=== PATIENT | female | born 1950 | race African-American/Black ===

== ENCOUNTER 2021-03-03 17:29 | Inpatient (IN) | payer OTHER, MEDICAID ==
[~2021-03-03] VITALS: Ht 157.5 cm; Wt 49.1 kg
[2021-03-03] MEDS ORDERED: ONDANSETRON HCL 4MG/2ML INJ IV STA (18:53)
[2021-03-03] MEDS ORDERED: SODIUM CHLORIDE 0.9% 250 ML IV ONE (19:00)
[2021-03-03 19:25] LABS: HEMATOCRIT. 45.8 % (36.0-48.0); HEMOGLOBIN. 15.3 g/dL (12.0-16.0); MEAN CORPUSCULAR HEMOGLOBIN 29.4 pg (28.0-32.0); MEAN PLATELET VOLUME 8.6 fl (7.4-10.4); PLATELET 131 x1000/uL (130-400); RED BLOOD CELL COUNT 5.21 mill/uL (4.2-5.4); RED CELL DISTRIBUTION WIDTH 13.8 % (11.6-14.6)
[2021-03-03 19:57] LABS: PLATELET ESTIMATE NORMAL
[2021-03-03 21:45] LABS: CHLORIDE 113 mEq/L (98-107)
[2021-03-03 21:54] LABS: CREATINE KINASE 163 IU/L (26-192)
[2021-03-03 21:57] LABS: CREATINE KINASE MB FRACTION 7.4 ng/mL (0.5-3.6)
[2021-03-03 22:07] LABS: CLARITY URINE CLOUDY (CLEAR); COLOR URINE YELLOW (YELLOW); KETONES URINE TRACE (NEGATIVE); LEUKOCYTE ESTERASE URINE NEGATIVE (NEGATIVE); NITRITE URINE NEGATIVE (NEGATIVE); OCCULT BLOOD URINE NEGATIVE (NEGATIVE); PROTEIN URINE TRACE (NEGATIVE); SPECIFIC GRAVITY URINE 1.013 (1.005-1.030); UROBILINOGEN URINE 0.2 E.U./dL (0.2-1.0)
[2021-03-03] MEDS ORDERED: ASPIRIN 325MG EC TABLET PO NR (23:15)
[2021-03-03] MEDS ORDERED: POTASSIUM CHLORIDE 20MEQ TABLET SR PO NR (23:30)
[2021-03-04] MEDS: KCL 20MEQ/100ML PREMIX 100 ML IV SCH ×3 (01:34→04:38)
[2021-03-04] MEDS ORDERED: CALCIUM GLUCONATE 1,000 MG in DEXT 5% WATER 90 ML IV NR (09:45)
[2021-03-04] MEDS ORDERED: CALCIUM GLUCONATE 1GM PREMIX 50 ML IV NR (10:15)
[2021-03-04] MEDS: SODIUM CHLORIDE 0.45% 1,000 ML IV SCH ×2 (11:49→23:48)
[2021-03-04] MEDS: POTASSIUM CHLORIDE 20MEQ TABLET SR PO NR ×2 (11:50→12:12)
[2021-03-04] MEDS: ENOXAPARIN 40MG/0.4ML SYR SUBCUT SCH (13:17)
[2021-03-04] MEDS ORDERED: MAGNESIUM 2 G PREMIX 50 ML IV NR (22:00)
[2021-03-05] MEDS ORDERED: NALOXONE HCL 0.4MG/ML VIAL IV PRN (04:30)
[2021-03-05] MEDS ORDERED: MORPHINE SULFATE 2 MG/ML CPJ (NOT FOR IM USE) IV PRN (04:30)
[2021-03-05 07:15] LABS: HEMATOCRIT. 35.9 % (36.0-48.0); HEMOGLOBIN. 12.5 g/dL (12.0-16.0); MEAN CORPUSCULAR HEMOGLOBIN 30.1 pg (28.0-32.0); MEAN CORPUSCULAR VOLUME 86.7 fL (81.0-99.0); MEAN PLATELET VOLUME 8.7 fl (7.4-10.4); PLATELET 116 x1000/uL (130-400); RED BLOOD CELL COUNT 4.14 mill/uL (4.2-5.4)
[2021-03-05 07:18] LABS: CHLORIDE 93 mEq/L (98-107)
[2021-03-05 08:30] VITALS: BP 124/59
[2021-03-05 09:00] VITALS: BP 128/64
[2021-03-05] MEDS ORDERED: POTASSIUM CHLORIDE 20MEQ TABLET SR PO NR (09:45)
[2021-03-05] MEDS ORDERED: ONDANSETRON HCL 4MG/2ML INJ IV PRN (10:45)
[2021-03-05] MEDS: ENOXAPARIN 40MG/0.4ML SYR SUBCUT SCH (11:00)
[2021-03-05 12:00] VITALS: BP 122/68
[2021-03-05 13:57] LABS: PLATELET ESTIMATE DECREASED
[2021-03-05 16:00] VITALS: BP 124/70
[2021-03-05] MEDS ORDERED: ALBUTEROL 6.7GM HFA INHALER ORI PRN (17:30)
[2021-03-05] MEDS ORDERED: ATEN-42 PO (18:34)
[2021-03-05] MEDS ORDERED: ASPI-1406 PO (18:34)
[2021-03-05] MEDS ORDERED: ATOR20TA65 PO (18:34)
[2021-03-05] MEDS ORDERED: CHLO25TA2 PO (18:34)
[2021-03-05 20:00] VITALS: BP 99/58
[2021-03-05] MEDS: GUAIFENESIN 600MG ER TABLET PO SCH (21:02)
[2021-03-05] MEDS: ATORVASTATIN CALCIUM 20MG TABLET PO SCH (21:02)
[2021-03-06] VITALS: BP 98/40
[2021-03-06] MEDS: SODIUM CHLORIDE 0.45% 1,000 ML IV SCH ×2 (01:35→18:39)
[2021-03-06 04:00] VITALS: BP 90/55
[2021-03-06 08:00] VITALS: BP 114/60
[2021-03-06] MEDS: ASPIRIN 81MG TABLET PO SCH (08:58)
[2021-03-06] MEDS: GUAIFENESIN 600MG ER TABLET PO SCH ×2 (08:58→22:23)
[2021-03-06] MEDS: ENOXAPARIN 40MG/0.4ML SYR SUBCUT SCH (10:05)
[2021-03-06] MEDS ORDERED: POTASSIUM CHLORIDE 20MEQ TABLET SR PO NR (11:30)
[2021-03-06 12:30] LABS: BG BASE EXCESS 4.2 mmol/L (-2.0-2.0); BG CARBOXYHEMOGLOBIN 0.2 % (0.5-1.5); BG HCO3 ACT 29.1 mmol/L (22.0-26.0); BG OXYHEMOGLOBIN 90.8 % (94.0-97.0); BG PCO2 44.4 mmHg (35.0-45.0); BG PH 7.434 (7.350-7.450); BG PO2 58.7 mmHg (75.0-100.0); BG SAMPLE SITE RIGHT BRACHIAL; BG TOTAL HEMOGLOBIN 14.3 g/dL (12.0-18.0); BG VENT MODE ROOM AIR
[2021-03-06 12:33] VITALS: BP 124/58
[2021-03-06 16:00] VITALS: BP 127/47
[2021-03-06 20:00] VITALS: BP 128/60
[2021-03-06] MEDS: ATORVASTATIN CALCIUM 20MG TABLET PO SCH (22:23)
[2021-03-06] MEDS: ACETAMINOPHEN 325MG TABLET PO PRN (22:24)
[2021-03-07] VITALS: BP 110/53
[2021-03-07 04:00] VITALS: BP 100/51
[2021-03-07] MEDS: SODIUM CHLORIDE 0.45% 1,000 ML IV SCH ×2 (05:16→17:28)
[2021-03-07 08:00] VITALS: BP 126/84
[2021-03-07] MEDS: GUAIFENESIN 600MG ER TABLET PO SCH ×2 (09:58→22:03)
[2021-03-07] MEDS: ASPIRIN 81MG TABLET PO SCH (09:58)
[2021-03-07] MEDS: ENOXAPARIN 40MG/0.4ML SYR SUBCUT SCH (10:00)
[2021-03-07 12:00] VITALS: BP 128/61
[2021-03-07 16:00] VITALS: BP 132/65
[2021-03-07 20:00] VITALS: BP 138/60
[2021-03-07] MEDS ORDERED: ZOLPIDEM TARTRATE 5MG TABLET PO PRN (20:00)
[2021-03-07] MEDS: ATORVASTATIN CALCIUM 20MG TABLET PO SCH (22:03)
[2021-03-08] VITALS: BP 128/76
[2021-03-08 04:00] VITALS: BP 117/61
[2021-03-08 06:08] LABS: HEMATOCRIT. 31.8 % (36.0-48.0); MEAN CORPUSCULAR HEMOGLOBIN 30.2 pg (28.0-32.0); MEAN CORPUSCULAR VOLUME 86.9 fL (81.0-99.0); MEAN PLATELET VOLUME 8.1 fl (7.4-10.4); PLATELET 244 x1000/uL (130-400); RED BLOOD CELL COUNT 3.65 mill/uL (4.2-5.4); RED CELL DISTRIBUTION WIDTH 13.8 % (11.6-14.6)
[2021-03-08 06:13] LABS: CHLORIDE 99 mEq/L (98-107)
[2021-03-08 08:00] VITALS: BP 96/59
[2021-03-08] MEDS: GUAIFENESIN 600MG ER TABLET PO SCH ×2 (08:59→21:10)
[2021-03-08] MEDS: ASPIRIN 81MG TABLET PO SCH (08:59)
[2021-03-08] MEDS: SODIUM CHLORIDE 0.45% 1,000 ML IV SCH ×2 (09:00→20:25)
[2021-03-08] MEDS: ENOXAPARIN 30MG/0.3ML SYR SUBCUT SCH (09:03)
[2021-03-08 12:00] VITALS: BP 150/75
[2021-03-08 16:00] VITALS: BP 120/79
[2021-03-08 17:27] LABS: PLATELET ESTIMATE NORMAL
[2021-03-08 20:00] VITALS: BP 126/59
[2021-03-08] MEDS: ATORVASTATIN CALCIUM 20MG TABLET PO SCH (21:10)
[2021-03-08] MEDS: DEXAMETHASONE 4MG TABLET PO SCH (22:28)
[2021-03-08] MEDS ORDERED: MAGNESIUM 4 G PREMIX 100 ML IV NR (22:30)
[2021-03-09] VITALS: BP 118/63
[2021-03-09 04:00] VITALS: BP 133/70
[2021-03-09 08:00] VITALS: BP 127/64
[2021-03-09] MEDS: GUAIFENESIN 600MG ER TABLET PO SCH ×2 (09:32→20:00)
[2021-03-09] MEDS: ENOXAPARIN 30MG/0.3ML SYR SUBCUT SCH (09:32)
[2021-03-09] MEDS: DEXAMETHASONE 4MG TABLET PO SCH (09:32)
[2021-03-09] MEDS: ASPIRIN 81MG TABLET PO SCH (09:32)
[2021-03-09] MEDS: SODIUM CHLORIDE 0.45% 1,000 ML IV SCH ×2 (09:33→20:01)
[2021-03-09 12:00] VITALS: BP 118/74
[2021-03-09 16:00] VITALS: BP 129/57
[2021-03-09] MEDS: HYDROCODONE/ACETAMINOPHEN 10/325MG TABLET PO PRN (19:48)
[2021-03-09] MEDS: ATORVASTATIN CALCIUM 20MG TABLET PO SCH (20:00)
[2021-03-10 00:05] VITALS: BP 118/57
[2021-03-10 04:00] VITALS: BP 113/59
[2021-03-10] MEDS: ASPIRIN 81MG TABLET PO SCH (08:52)
[2021-03-10] MEDS: SODIUM CHLORIDE 0.45% 1,000 ML IV SCH ×2 (08:52→21:03)
[2021-03-10] MEDS: ENOXAPARIN 30MG/0.3ML SYR SUBCUT SCH (08:52)
[2021-03-10] MEDS: GUAIFENESIN 600MG ER TABLET PO SCH ×2 (08:53→20:56)
[2021-03-10] MEDS: HYDROCODONE/ACETAMINOPHEN 10/325MG TABLET PO PRN ×2 (08:54→18:50)
[2021-03-10] MEDS: DEXAMETHASONE 4MG TABLET PO SCH (08:54)
[2021-03-10 12:00] VITALS: BP 112/46
[2021-03-10 16:00] VITALS: BP 106/28
[2021-03-10 20:00] VITALS: BP 123/87
[2021-03-10] MEDS: ATORVASTATIN CALCIUM 20MG TABLET PO SCH (20:56)
[2021-03-10] MEDS: GUAIFENESIN/CODEINE 200-20MG/10ML UDC PO PRN (21:02)
[2021-03-11] VITALS: BP 118/62
[2021-03-11 00:08] LABS: BASOPHILS % 0.4 % (0.0-2.0); HEMATOCRIT. 29.5 % (36.0-48.0); HEMOGLOBIN. 9.8 g/dL (12.0-16.0); LYMPHOCYTES % 11.4 % (20.0-50.0); MEAN CORPUSCULAR HEMOGLOBIN 29.3 pg (28.0-32.0); MEAN CORPUSCULAR VOLUME 87.9 fL (81.0-99.0); MEAN PLATELET VOLUME 6.9 fl (7.4-10.4); NEUTROPHILS % 76.2 % (40.0-76.0); PLATELET 375 x1000/uL (130-400); RED BLOOD CELL COUNT 3.35 mill/uL (4.2-5.4)
[2021-03-11 00:17] LABS: CHLORIDE 101 mEq/L (98-107)
[2021-03-11 04:00] VITALS: BP 120/84
[2021-03-11 08:00] VITALS: BP 136/52
[2021-03-11] MEDS: ASPIRIN 81MG TABLET PO SCH (08:28)
[2021-03-11] MEDS: ENOXAPARIN 30MG/0.3ML SYR SUBCUT SCH (08:28)
[2021-03-11] MEDS: GUAIFENESIN 600MG ER TABLET PO SCH ×2 (08:28→21:03)
[2021-03-11] MEDS: DEXAMETHASONE 4MG TABLET PO SCH (08:28)
[2021-03-11] MEDS: GUAIFENESIN/CODEINE 200-20MG/10ML UDC PO PRN ×2 (10:29→21:03)
[2021-03-11] MEDS: ACETAMINOPHEN 325MG TABLET PO PRN ×2 (10:33→21:08)
[2021-03-11 12:00] VITALS: BP 136/61
[2021-03-11] MEDS: SODIUM CHLORIDE 0.45% 1,000 ML IV SCH (14:06)
[2021-03-11 16:00] VITALS: BP 107/48
[2021-03-11 20:00] VITALS: BP 132/62
[2021-03-11] MEDS: ATORVASTATIN CALCIUM 20MG TABLET PO SCH (21:03)
[2021-03-11] MEDS ORDERED: NALOXONE HCL 0.4MG/ML VIAL IV PRN (23:45)
[2021-03-12] VITALS: BP 108/51
[2021-03-12] MEDS: SODIUM CHLORIDE 0.45% 1,000 ML IV SCH ×2 (03:17→18:23)
[2021-03-12 04:00] VITALS: BP 123/57
[2021-03-12 08:00] VITALS: BP 146/79
[2021-03-12] MEDS: GUAIFENESIN/CODEINE 200-20MG/10ML UDC PO PRN ×2 (09:15→21:13)
[2021-03-12] MEDS: ENOXAPARIN 30MG/0.3ML SYR SUBCUT SCH (09:16)
[2021-03-12] MEDS: DEXAMETHASONE 4MG TABLET PO SCH (09:16)
[2021-03-12] MEDS: GUAIFENESIN 600MG ER TABLET PO SCH ×2 (09:16→21:13)
[2021-03-12] MEDS: ASPIRIN 81MG TABLET PO SCH (09:16)
[2021-03-12] MEDS: ACETAMINOPHEN 325MG TABLET PO PRN (09:17)
[2021-03-12 12:00] VITALS: BP 138/64
[2021-03-12 16:00] VITALS: BP 118/52
[2021-03-12 20:00] VITALS: BP 120/59
[2021-03-12] MEDS: ATORVASTATIN CALCIUM 20MG TABLET PO SCH (21:13)
[2021-03-13] VITALS: BP 115/52
[2021-03-13 04:00] VITALS: BP 131/46
[2021-03-13 07:48] VITALS: BP 137/69
[2021-03-13 08:00] VITALS: BP 148/70
[2021-03-13] MEDS: DEXAMETHASONE 4MG TABLET PO SCH (08:24)
[2021-03-13] MEDS: ASPIRIN 81MG TABLET PO SCH (08:24)
[2021-03-13] MEDS: GUAIFENESIN 600MG ER TABLET PO SCH (08:24)
[2021-03-13] MEDS: ENOXAPARIN 30MG/0.3ML SYR SUBCUT SCH (08:24)
[2021-03-13] MEDS: GUAIFENESIN/CODEINE 200-20MG/10ML UDC PO PRN (08:55)
== END 2021-03-13 11:55 | disposition home or self-care (01) | DRG 177 ==
LOC: ER 17:29 → MICUSO 22:13 → EDBEDREQTM 22:18 → EDBEDREQSVC 22:18 → EDBEDREQ 22:18 → 7WST 03-05 06:08
PROVIDERS: ADMIT Internal Medicine; ATTEND Internal Medicine
DX: U07.1 COVID-19 (principal); E43 Unspecified severe protein-calorie malnutrition; Z68.1 Body mass index [BMI] 19.9 or less, adult; E87.6 Hypokalemia; I10 Essential (primary) hypertension; E78.5 Hyperlipidemia, unspecified; E83.51 Hypocalcemia; E83.42 Hypomagnesemia; E78.00 Pure hypercholesterolemia, unspecified; Z87.891 Personal history of nicotine dependence; Z85.118 Personal history of other malignant neoplasm of bronchus and lung
CPT/HCPCS: 36415; 36600; 71045; 80048; 80053; 81003; 82375; 82550; 82553; 82728; 82805; 83605; 83735; 84132; 84145; 84484; 85025; 87426; 93005; 94618; 99291; C1893; J0610; J1650; J2270; J2405; J3475; J3480; J7030; J7042; J7060; J8540

== ENCOUNTER 2022-06-29 17:50 | Inpatient (IN) | payer OTHER, MEDICAID ==
[~2022-06-29] VITALS: Ht 152.4 cm; Wt 58.5 kg
[~2022-06-29 17:50] MED LIST: ASPI-1406 PO; ATEN-42 PO; ATOR20TA65 PO; CHLO25TA2 PO
[2022-06-29 18:23] LABS: BASOPHILS % 0.7 % (0.0-2.0); EOSINOPHILS % 0.1 % (0.0-5.0); HEMATOCRIT. 41.2 % (36.0-48.0); HEMOGLOBIN. 13.7 g/dL (12.0-16.0); LYMPHOCYTES % 17.6 % (20.0-50.0); MEAN CORPUSCULAR HEMOGLOBIN 30.2 pg (28.0-32.0); MEAN CORPUSCULAR VOLUME 90.9 fL (81.0-99.0); MEAN PLATELET VOLUME 7.6 fl (7.4-10.4); MONOCYTES % 12.9 % (2.0-8.0); NEUTROPHILS % 68.7 % (40.0-76.0); PLATELET 167 x1000/uL (130-400); RED BLOOD CELL COUNT 4.54 mill/uL (4.2-5.4); RED CELL DISTRIBUTION WIDTH 14.8 % (11.6-14.6)
[2022-06-29 18:25] LABS: CHLORIDE 98 mEq/L (98-107)
[2022-06-29 18:27] LABS: PROTHROMBIN TIME 10.5 sec (9.6-11.0)
[2022-06-29 18:56] LABS: D-DIMER 1.22 mg/L FEU (<0.50)
[2022-06-29] MEDS ORDERED: IOHEXOL-350 100 ML BOTTLE ONE (21:02)
[2022-06-29] MEDS ORDERED: METHYLPREDNISOLONE SOD SUCC 125 MG/2 ML VIAL IV STA (21:43)
[2022-06-29 21:53] LABS: CLARITY URINE CLOUDY (CLEAR); COLOR URINE YELLOW (YELLOW); KETONES URINE TRACE (NEGATIVE); LEUKOCYTE ESTERASE URINE 1+ (NEGATIVE); NITRITE URINE NEGATIVE (NEGATIVE); OCCULT BLOOD URINE NEGATIVE (NEGATIVE); PROTEIN URINE TRACE (NEGATIVE); SPECIFIC GRAVITY URINE 1.035 (1.005-1.030); UROBILINOGEN URINE 0.2 E.U./dL (0.2-1.0)
[2022-06-29] MEDS ORDERED: SODIUM CHLORIDE 0.9% 1,000 ML IV ONE (22:15)
[2022-06-29] MEDS: ALBUTEROL (0.083%) 2.5MG/3ML NEB HHN SCH ×2 (22:23→23:18)
[2022-06-30] MEDS: ALBUTEROL (0.083%) 2.5MG/3ML NEB HHN SCH
[2022-06-30 01:43] VITALS: BP 149/74
[2022-06-30 06:06] LABS: HEPATITIS B SURFACE ANTIGEN NEGATIVE
[2022-06-30 07:03] VITALS: BP 156/69
[2022-06-30 08:00] VITALS: BP 127/77
[2022-06-30] MEDS: ASPIRIN 81MG EC TABLET PO SCH (08:38)
[2022-06-30] MEDS: CHLORTHALIDONE 25MG TABLET PO SCH (08:38)
[2022-06-30] MEDS: ATORVASTATIN CALCIUM 20MG TABLET PO SCH (08:38)
[2022-06-30] MEDS ORDERED: FAMOTIDINE 20MG/2ML VIAL IV SCH (09:00)
[2022-06-30] MEDS ORDERED: NALOXONE HCL 0.4MG/ML VIAL IV PRN (09:30)
[2022-06-30] MEDS: ENOXAPARIN 40MG/0.4ML SYR SUBCUT SCH (09:35)
[2022-06-30] MEDS: ATENOLOL 25MG TABLET PO SCH (11:46)
[2022-06-30] MEDS: HYDROCODONE/ACETAMINOPHEN 5/325MG TABLET PO PRN ×2 (11:48→20:39)
[2022-06-30 12:00] VITALS: BP 126/69
[2022-06-30 16:00] VITALS: BP 105/57
[2022-06-30] MEDS ORDERED: POTASSIUM CHLORIDE 20MEQ TABLET SR PO NR (17:00)
[2022-06-30] MEDS: METHYLPREDNISOLONE SOD SUCC 125 MG/2 ML VIAL IV SCH (18:46)
[2022-06-30 20:00] VITALS: BP 166/84
[2022-06-30] MEDS: IPRATROPIUM/ALBUTEROL 0.5-3(2.5)MG/3ML NEB HHN SCH (21:55)
[2022-07-01] VITALS: BP 154/67
[2022-07-01] MEDS: METHYLPREDNISOLONE SOD SUCC 125 MG/2 ML VIAL IV SCH ×3 (00:37→17:45)
[2022-07-01] MEDS: IPRATROPIUM/ALBUTEROL 0.5-3(2.5)MG/3ML NEB HHN SCH ×4 (02:25→20:51)
[2022-07-01 04:00] VITALS: BP 126/60
[2022-07-01 08:00] VITALS: BP 159/67
[2022-07-01] MEDS: FAMOTIDINE 20MG/2ML VIAL IV SCH ×2 (08:29→20:40)
[2022-07-01] MEDS: ATORVASTATIN CALCIUM 20MG TABLET PO SCH (08:29)
[2022-07-01] MEDS: CHLORTHALIDONE 25MG TABLET PO SCH (08:30)
[2022-07-01] MEDS: ASPIRIN 81MG EC TABLET PO SCH (08:30)
[2022-07-01] MEDS: ATENOLOL 25MG TABLET PO SCH (08:30)
[2022-07-01] MEDS: ENOXAPARIN 40MG/0.4ML SYR SUBCUT SCH (08:30)
[2022-07-01 12:00] VITALS: BP 152/65
[2022-07-01] MEDS: HYDROCODONE/ACETAMINOPHEN 5/325MG TABLET PO PRN (14:23)
[2022-07-01 15:45] LABS: BG BASE EXCESS 0.1 mmol/L (-2.0-2.0); BG CARBOXYHEMOGLOBIN 0.5 % (0.5-1.5); BG DEOXYHEMOGLOBIN 6.4 % (0.0-5.0); BG HCO3 ACT 23.8 mmol/L (22.0-26.0); BG METHEMOGLOBIN 0.6 % (0.0-1.5); BG OXYGEN SATURATION 93.5 % (92.0-98.5); BG OXYHEMOGLOBIN 92.5 % (94.0-97.0); BG PCO2 35.7 mmHg (35.0-45.0); BG PH 7.442 (7.350-7.450); BG PO2 65.6 mmHg (75.0-100.0); BG SAMPLE SITE RIGHT BRACHIAL; BG TOTAL HEMOGLOBIN 14.1 g/dL (12.0-18.0); BG VENT MODE ROOM AIR
[2022-07-01 16:00] VITALS: BP_SYST 157; BP_SYST 168; BP_DIAS 64; BP_DIAS 71
[2022-07-01 20:00] VITALS: BP 179/80
[2022-07-02] VITALS: BP 138/74
[2022-07-02] MEDS: IPRATROPIUM/ALBUTEROL 0.5-3(2.5)MG/3ML NEB HHN SCH ×2 (01:17→09:35)
[2022-07-02] MEDS: METHYLPREDNISOLONE SOD SUCC 125 MG/2 ML VIAL IV SCH ×2 (02:12→08:59)
[2022-07-02] MEDS: HYDROCODONE/ACETAMINOPHEN 5/325MG TABLET PO PRN (02:27)
[2022-07-02 04:00] VITALS: BP 147/74
[2022-07-02 08:00] VITALS: BP 138/79
[2022-07-02] MEDS: ATENOLOL 25MG TABLET PO SCH (08:59)
[2022-07-02] MEDS: ATORVASTATIN CALCIUM 20MG TABLET PO SCH (08:59)
[2022-07-02] MEDS: CHLORTHALIDONE 25MG TABLET PO SCH (08:59)
[2022-07-02] MEDS: FAMOTIDINE 20MG/2ML VIAL IV SCH (08:59)
[2022-07-02] MEDS: ASPIRIN 81MG EC TABLET PO SCH (08:59)
[2022-07-02] MEDS: ENOXAPARIN 40MG/0.4ML SYR SUBCUT SCH (09:00)
[2022-07-02] MEDS ORDERED: FLUT1DIS3 INH (09:47)
[2022-07-02] MEDS ORDERED: ALBU18HF2 IH (09:47)
[2022-07-02] MEDS ORDERED: P20 MT (09:47)
[2022-07-02 10:15] VITALS: BP 138/79
== END 2022-07-02 14:33 | disposition home or self-care (01) | DRG 189 ==
LOC: ER 17:50 → 8WST 23:51
PROVIDERS: ADMIT Internal Medicine Pulmonary Disease; ATTEND Internal Medicine Pulmonary Disease
DX: J96.00 Acute respiratory failure, unspecified whether with hypoxia or hypercapnia (principal); J44.1 Chronic obstructive pulmonary disease with (acute) exacerbation; E87.1 Hypo-osmolality and hyponatremia; Z20.822 Contact with and (suspected) exposure to COVID-19; I10 Essential (primary) hypertension; E87.6 Hypokalemia; E78.00 Pure hypercholesterolemia, unspecified; E78.5 Hyperlipidemia, unspecified
CPT/HCPCS: 36415; 36600; 71045; 71275; 80053; 81003; 82375; 82805; 83036; 83880; 84484; 85025; 85379; 86803; 87340; 87426; 87804; 93005; 94618; 94640; 99285; C9803; J1650; J2930; J3490; J7030; Q9967